=== PATIENT | female | born 1960 | race Caucasian/White ===

== ENCOUNTER 2023-09-06 12:44 | Emergency (ER) | payer OTHER, SELFPAY ==
--- NOTE | ~2023-09-06 | XR_ITS ---
EXAMINATION: XR TIBIA AND FIBULA, RIGHT CLINICAL INFORMATION: Injury COMPARISON: None available. TECHNIQUE: AP and lateral views of the right tibia and fibula were obtained. FINDINGS: No radiographic evidence of acute fracture or dislocation. Tibia and fibula are intact. There are degenerative osteoarthritic changes at the level of the knee. Surrounding soft tissues are grossly unremarkable. XR/XR tibia fibula RT 2V IMPRESSION: * No radiographic evidence of acute fracture. * Degenerative osteoarthritis of the knee.
--- NOTE | ~2023-09-06 | CT_ITS ---
EXAMINATION: CT HEAD WITHOUT CONTRAST CLINICAL INFORMATION: Headache and pain. Fall. COMPARISON: None available. TECHNIQUE: Contiguous axial imaging was performed from the skull base to vertex without intravenous administration of contrast. This CT examination was performed using dose optimization techniques as appropriate, variously including the following: *Automated exposure control *Adjustment of mA and/or kV according to patient size (this includes techniques or standardized protocols for targeted exams where dose is matched to indication/reason for exam; i.e. extremities or head) *Use of iterative reconstruction technique DLP: 1192 mGy-cm FINDINGS: There is no intracranial hemorrhage. There is no evidence of acute/subacute cerebral or cerebellar infarction. There is no midline shift, mass effect, or extra-axial fluid collection. The ventricles are normal in size. The orbits are symmetric and within normal limits. The calvarium is intact. The visualized paranasal sinuses are clear. The mastoid air cells are clear. CT/CT head/brain wo IV con IMPRESSION: No acute intracranial pathology.
--- NOTE | ~2023-09-06 | CT_ITS ---
EXAMINATION: CT CERVICAL SPINE WITHOUT CONTRAST CLINICAL INFORMATION: Fall. Headache. Pain. COMPARISON: Cervical spine radiographs dated 08/11/2018. TECHNIQUE: Noncontrast computed tomography of the cervical spine was performed. This CT examination was performed using dose optimization techniques as appropriate, variously including the following: *Automated exposure control *Adjustment of mA and/or kV according to patient size (this includes techniques or standardized protocols for targeted exams where dose is matched to indication/reason for exam; i.e. extremities or head) *Use of iterative reconstruction technique DLP: 641.89 mGy-cm FINDINGS: There is straightening and reversal of the normal cervical lordosis. The vertebral bodies demonstrate preserved stature. There is mild narrowing of the C4-C5 intervertebral disc space. There is moderate degenerative disc disease at C5-C6 and C6-C7 characterized by intervertebral disc space narrowing, endplate sclerosis, and marginal osteophytosis. The facet joints demonstrate anatomic alignment. The prevertebral soft tissue is normal in appearance. The C1-C2 relationship is anatomic. The dens is intact. There is no cervical spine fracture. The mastoid air cells are well aerated. The lung apices are clear. The thyroid gland is normal in appearance. CT/CT cervical spine wo IV con IMPRESSION: No acute osseous cervical spine abnormality. There is degenerative disc disease, most pronounced at C5-C6 and C6-C7. Fleischner guidelines were followed.
--- NOTE | ~2023-09-06 | XR_ITS ---
EXAMINATION: XR HAND/WRIST, LEFT CLINICAL INFORMATION: Fall. Tenderness. COMPARISON: None TECHNIQUE: PA, lateral, and oblique views of the left hand and wrist. FINDINGS: No fracture or dislocation. Regional soft tissue is normal in appearance. There is no radiopaque foreign object identified. XR/XR hand wrist LT IMPRESSION: No fracture or dislocation.
[2023-09-06 13:09] VITALS: BP 142/71; PULSE 77; RESP 21; TEMP 36.7; O2SAT 95; BMI 46.6
--- NOTE | 2023-09-06 13:12 | ED.GENADULT ---
HPI - General Adult General Chief complaint: Headache Stated complaint: fall 08/31 dizzy Time Seen by Provider: 09/06/23 13:58 Source: patient Mode of arrival: ambulatory Limitations: no limitations History of Present Illness HPI narrative: Patient is a 62-year-old left-hand dominant female presenting to the emergency department with complaint ongoing headache, left hand and wrist pain and right gonzalez pain after a fall on Wednesday. Patient reports that she was painting on a 3 step ladder when she lost her balance and fell backwards onto the floor. She denies loss of consciousness. She has not anticoagulated. She reports photophobia and states headache is worsened by watching TV, looking at phone, etc. Denies vomiting. Denies blurred vision, double vision or other changes in vision. Has been using Tylenol with temporary relief. complaint: head injury Onset (ago): day(s) Location: head Severity: moderate Quality: aching Pain Consistency: colicky Associated symptoms: denies other symptoms Treatments prior to arrival: cold therapy and other Related Data Allergies Allergy/AdvReac Type Severity Reaction Status Date / Time Motrin Allergy Unknown Uncoded 05/21/21 10:18 Review of Systems Review of Systems: As per HPI. Yes all other systems are reviewed and are negative Constitutional: Constitutional: Reports as per HPI COUNTS INCLUDE 234 BEDS AT THE [facility] Social History Social History (System 05/21/21 @ 10:18 by Colette Hough) Advance Directives: No Advance Directives Information Provided: No Physical Exam ED Vital Signs: Vital Signs - 24 hr 09/06/23 13:09 Temperature 98.0 F Pulse Rate 77 Respiratory Rate 21 H Blood Pressure 142/71 H Pulse Oximetry 95 Oxygen Delivery Method Room Air BMI result Body Mass Index 46.6 Vital signs have been reviewed and appear to be correct. Blood pressure normal. Heart rate normal. Respiratory rate normal. Temperature normal. Oxygen saturation normal. Const General: cooperative, healthy appearing and no acute distress Orientation/consciousness: oriented to person, oriented to place, oriented to time and patient oriented x3 Limitations: no limitations HENMT Head: Yes normocephalic and Yes atraumatic Ears: external ears normal General nose exam: Normal external nose present Face and sinus: Yes face symmetric Mouth: oropharynx normal and moist mucous membranes Throat: Yes uvula midline Eyes Pupils: Equal, round and reactive pupils present Neck Neck: Yes normal visual inspection and Yes supple Resp Effort & Inspection: normal respiratory effort and able to speak in complete sentences Auscultation: clear to auscultation bilaterally Cardio Rate: regular rate Rhythm: regular rhythm Heart sounds: S1 normal heart sound present and S2 normal heart sound present GI Palpation (GI): Soft to palpation and nontender Auscultation: normoactive bowel sounds General: Yes no CVA tenderness Back/Spine/Pelvis Back: no CVA tenderness Skin General skin exam: elasticity normal and turgor normal Neuro General: oriented to person, oriented to place, oriented to time, patient oriented x3, moves all extremities, no focal motor deficits and CN's II-XI intact bilaterally Cranial nerves: Yes Equal, round and reactive pupils present Cognition (Neuro): normal cognition Extrem General: Yes full ROM, Yes no pedal edema and Yes no calf tenderness Left upper extremity: hand (no tenderness to snuff box) Details: normal to inspection, normal capillary refill, neuromotor exam normal, neurosensory exam normal, tenderness Location: of the palm Location: at the thenar eminence, vascular exam Details: radial pulse present and normal ROM of fingers Right lower extremity: lower leg Details: normal to inspection and tenderness Location: of the midshaft tibia; no localized swelling, no abrasions and no ecchymosis Psych Mental Status: mental status grossly normal Affect: normal affect Thought process: Normal thought process present Course Course Course Narrative: RME performed by Samina Cortes PA-C. Patient is a 62 year old assigned female at presenting to the emergency department after a fall on 09/01/2023, patient states that she fell and hit her head but did not lose consciousness. Patient fell off a 3 step ladder and fell backwards. Detailed physical exam and review of systems are deferred to the mid level clinician. Imaging ordered. Patient placed back in the waiting room pending room availability and results. Medical Decision Making Medical Decision Making MDM Narrative: Patient is a 62-year-old left-hand dominant female presenting to the emergency department with complaint ongoing headache, left hand and wrist pain and right gonzalez pain after a fall on Wednesday. On exam patient is awake, A+Ox3, VS WNL, afebrile, normal neurological exam without focal deficits, physical exam findings as above. Given reported symptoms and physical exam findings, initial differential includes concussion, ICH, skull fracture, left wrist/hand contusion versus fracture, right tibia contusion versus fracture. X-rays notable for no acute fractures of left wrist, hand, or right tibia. CT notable for no evidence of ICH, skull or cervical vertebral fracture or subluxation. My interpretation is in agreement with the radiologist's interpretation. All results discussed with patient and all questions answered. Advised patient to follow-up with her primary care provider. Discussed cognitive rest with patient, advised to take Tylenol, apply ice to affected areas. Return precautions discussed at bedside. Patient verbalized understanding of and agreement with plan. Differential Diagnosis Differential Diagnoses: The differential diagnosis associated with the presentation includes As per MDM. Admission/Observation Consideration of admission/observation: Escalation of care including admission/observation considered Patient would have been admitted to the hospital had their work up had any findings where hospital admission was appropriate and their clinical presentation warranted hospital admission. Independent Interpretation I performed an independent interpretation of an: CT Scan Interpretation: No evidence of skull or cervical vertebral fracture, ICH on CT head and C-spine. No evidence of tibia fracture on xray. No evidence of left wrist or hand fracture. Radiology Impression Discussion of test interpretation with radiology: I have reviewed the radiologist's reading. Radiologist Impression: CT/CT head/brain wo IV con IMPRESSION: No acute intracranial pathology. CT/CT cervical spine wo IV con IMPRESSION: No acute osseous cervical spine abnormality. There is degenerative disc disease, most pronounced at C5-C6 and C6-C7. Fleischner guidelines were followed. XR/XR tibia fibula RT 2V IMPRESSION: * No radiographic evidence of acute fracture. * Degenerative osteoarthritis of the knee. XR/XR hand wrist LT IMPRESSION: No fracture or dislocation. External Record Review External record reviewed: Inpatient record, Office record and Outpatient record Discharge Plan Discharge Clinical Impression: Closed head injury, Contusion of lower leg, right, Contusion of hand, left Patient Disposition: Home, Self-Care Instructions: Concussion (ED), Contusion in Adults (ED), R.I.C.E. Treatment (ED) Additional Instructions: You were evaluated in the emergency room today for injuries sustained after a fall. Your evaluation did not show evidence of conditions requiring emergent medical treatment at this time. We recommend that you take 650 mg Tylenol every 6 hours as needed. You should apply ice to the affected areas for 10-15 minutes at a time several times daily. Please follow-up with your primary care provider. Return to the emergency department if you develop sudden severe headache, confusion, difficulty performing everyday tasks, fainting, changes in vision or any other concerning symptoms.
--- NOTE | 2023-09-06 13:18 | PC.NURSE ---
PT SPEAKS IN FULL SENTENCES.
[2023-09-06 17:01] VITALS: BP 123/66; PULSE 63; RESP 18; TEMP 36.5; O2SAT 95
== END 2023-09-06 19:40 | disposition home or self-care (01) ==
PROVIDERS: Emergency Provider Emergency Medicine; PCP Internal Medicine
DX: S09.90XA Unspecified injury of head, initial encounter (principal); S80.11XA Contusion of right lower leg, initial encounter; S60.222A Contusion of left hand, initial encounter; W11.XXXA Fall on and from ladder, initial encounter; Y93.9 Activity, unspecified; Y92.9 Unspecified place or not applicable; Y99.9 Unspecified external cause status
CPT/HCPCS: 70450; 72125; 73110; 73130; 73590; 99283; 99284